=== PATIENT | female | born 1965 | race Hispanic/Latino ===

== ENCOUNTER 2021-08-31 14:00 | Emergency (ER) | payer OTHER ==
[~2021-08-31] VITALS: Ht 160 cm; Wt 83.9 kg
[2021-08-31] MEDS ORDERED: ACETAMINOPHEN 500 MG TABLET PO ONE (14:30)
[2021-08-31 14:31] VITALS: BP 112/60
[2021-08-31] MEDS ORDERED: IBUP-2070 PO (17:30)
== END 2021-08-31 18:22 | disposition home or self-care (01) ==
LOC: EDH 14:00
DX: M25.551 Pain in right hip (principal); M54.2 Cervicalgia; X58.XXXA Exposure to other specified factors, initial encounter; Y93.89 Activity, other specified; Y92.89 Other specified places as the place of occurrence of the external cause; Y99.8 Other external cause status
CPT/HCPCS: 70450; 72125; 73521; 81025; 82948